=== PATIENT | male | born 1975 | race Caucasian/White ===

== ENCOUNTER 2018-03-28 09:38 | Emergency (ER) | payer OTHER ==
[~2018-03-28] VITALS: Ht 172.7 cm; Wt 136.1 kg
[2018-03-28 09:47] VITALS: BP 170/98
[2018-03-28] MEDS ORDERED: ZESTORETIC 20-1 EAC3 PO (10:08)
== END 2018-03-28 10:14 | disposition home or self-care (01) ==
LOC: M.ERS 09:38
DX: I10 Essential (primary) hypertension (principal); Z76.0 Encounter for issue of repeat prescription